=== PATIENT | male | born 1985 | race Two or more races ===

== ENCOUNTER 2017-05-05 09:42 | Emergency (ER) | payer SELFPAY ==
[2017-05-05] MEDS ORDERED: Ketorolac INJ* 60 MG/2 ML VIAL IM ONE (10:36)
[2017-05-05 11:28] VITALS: BP 148/78
--- NOTE | 2017-05-26 16:51 | ED ---
Laceration/Wound HPI - HPI Summary HPI Summary: Patient presents to the ED with a laceration to the right palm after cutting food. Tetanus is up-to-date. Bleeding is controlled on arrival. Pain is 2 out of 10, improved since arrival. Denies any known foreign bodies or contamination in the wound. He has never injured the area before. There is no numbness, tingling, color or temperature changes to the distal thumb. He denies any other injuries at this time is otherwise healthy. He was unsure if the area needed sutures, so he arrives to the ED for an evaluation. He is not on blood thinners. - History of Current Complaint Stated Complaint: CUT RIGHT PALM Time Seen by Provider: 05/05/17 09:53 Hx Obtained From: Patient Mechanism of Injury: Sharp/Blunt Trauma Onset/Duration: Sudden Onset Aggravating: Movement Alleviating: Compression Timing: Constant Onset Severity: Mild Current Severity: Mild Pain Intensity: 2 Pain Scale Used: 0-10 Numeric Related Hx: Dominant Hand (Right) - Allergy/Home Medications Allergies/Adverse Reactions: Allergies Allergy/AdvReac Type Severity Reaction Status Date / Time No Known Allergies Allergy Verified 05/05/17 11:11 PMH/Surg Hx/FS Hx/Imm Hx Previously Healthy: Yes - Immunization History Date of Tetanus Vaccine: 2 YEARS AGO Hx Pertussis Vaccination: No Immunizations Up to Date: Unable to Obtain/Confirm Infectious Disease History: No Infectious Disease History: Denies: Traveled Outside the [place] in Last 30 Days - Social History Occupation: Employed Full-time Lives: With Family Alcohol Use: Daily Hx Substance Use: Yes Substance Use Type: Reports: Marijuana Substance Use Comment - Amount & Last Used: OCCASIONAL Hx Tobacco Use: Yes Smoking Status (MU): Current Every Day Smoker Review of Systems Constitutional: Negative Negative: Fever, Chills, Fatigue, Skin Diaphoresis Eyes: Negative Cardiovascular: Negative Genitourinary: Negative Positive: no symptoms reported, see HPI Musculoskeletal: Negative Positive: Other - 2 cm superficial laceration to the base of the right thumb Neurological: Negative Psychological: Normal All Other Systems Reviewed And Are Negative: Yes Physical Exam Triage Information Reviewed: Yes Vital Signs On Initial Exam: Initial Vitals Temp Pulse Resp BP Pulse Ox 97.6 F 82 18 151/76 97 05/05/17 09:49 05/05/17 09:49 05/05/17 09:49 05/05/17 09:49 05/05/17 09:49 Vital Signs Reviewed: Yes Appearance: Positive: Well-Appearing, Well-Nourished Skin: Positive: Skin Color Reflects Adequate Perfusion, Other - 2 cm laceration to the right thumb Head/Face: Positive: Normal Head/Face Inspection Eyes: Positive: EOMI, MER, Conjunctiva Clear Neck: Positive: Supple, No Lymphadenopathy Respiratory/Lung Sounds: Positive: Clear to Auscultation, Breath Sounds Present Cardiovascular: Positive: Normal, RRR Musculoskeletal: Positive: Strength/ROM Intact Neurological: Positive: Speech Normal Psychiatric: Positive: Affect/Mood Appropriate Procedures - Laceration/Wound Repair 1 Location: upper extremity Description: Linear Betadine Prep?: No Laceration/Wound Explored: clean Closure: SteriStrips Layer Closure?: No Sterile Dressing Applied?: No - gauze wrapped Diagnostics - Vital Signs Vital Signs Temp Pulse Resp BP Pulse Ox 05/05/17 11:26 97.4 F 80 16 148/78 98 05/05/17 09:49 97.6 F 82 18 151/76 97 - Laboratory Lab Statement: Any lab studies that have been ordered have been reviewed, and results considered in the medical decision making process. Laceration Repair Course/Dx - Course Course Of Treatment: During the course of treatment the patient is evaluated for 2 cm laceration to the base of the right thumb. The area is very superficial, bleeding is controlled and does not require sutures at this time. Discussed treatment options with patient. Steri-Strips applied and gauze wrapped. He is given care instructions and return precautions for any signs of infection. He is okay with this plan and discharge and voices no concerns at this time. - Clinical Impression Provider Diagnoses: Laceration of right thumb Discharge - Discharge Plan Condition: Stable Disposition: HOME Patient Education Materials: Steristrips (ED) Referrals: No Primary Care Phys,NOPCP [Primary Care Provider] - Additional Instructions: Please follow up if any symptoms worsen Continue the steri strips for 4 days Keep wrapped if you are working in a dirty area - otherwise you may keep open to air Images - Images Hands: 1 - 2 cm laceration, superficial
== END 2017-05-05 11:26 | disposition home or self-care (01) ==
LOC: ED 09:42
DX: S61.011A Laceration without foreign body of right thumb without damage to nail, initial encounter (principal); W26.0XXA Contact with knife, initial encounter; Y93.G3 Activity, cooking and baking; Y92.9 Unspecified place or not applicable; F17.210 Nicotine dependence, cigarettes, uncomplicated
CPT/HCPCS: 96372; 99281; J1885